=== PATIENT | female | born 1960 ===

== ENCOUNTER 2020-04-28 05:47 | Day surgery (SDC) | payer BC ==
[2020-04-28] MEDS ORDERED: PROPOFOL 200 MG/20 ML VIAL IV ONE (05:48)
[2020-04-28] MEDS ORDERED: LIDOCAINE 1% 10 ML VIAL INJ ONE (05:48)
[2020-04-28] MEDS ORDERED: LACTATED RINGERS 1,000 ML ONE (05:57)
[2020-04-28] MEDS ORDERED: fentaNYL CITRATE INJ 50 MCG/ML 2 ML AMP ONE (08:38)
--- NOTE | 2020-04-28 09:45 | OP ---
DATE OF PROCEDURE: 04/28/20 PREOPERATIVE DIAGNOSIS: 1. Nausea. 2. Screening colonoscopy. POSTOPERATIVE DIAGNOSIS: 1. Possible gastritis. 2. Normal colon. PROCEDURE: 1. EGD with biopsies. 2. Colonoscopy. SURGEON: Yoel Darnell MD PROCEDURE: In lateral position with bite block in place, the endoscope was advanced through the esophagus into the duodenum without difficulty to the third portion of the duodenum. Upon withdrawal, the duodenum was normal with no evidence of ulcer. We did notice one speck of black in the stomach itself. No obvious ulcers were seen, but upon retroflexion, a small tear at the GE junction was noted. The patient said she had vomited from the colon prep and noticed a little bit of redness. This is likely where it came from. It will heal rapidly and is not actively bleeding. A tiny hiatal hernia was seen. The body and fundus appeared normal. There was a small, probable healed ulcer a little radial enhanced vessels with a crater. A biopsy was taken on the edge. Also, a instruments sales representative biopsy of the antrum. Otherwise, normal. Upon withdrawal, the GE junction and esophagus were otherwise normal. She was then placed in lateral position. Colonoscopy was performed. It was difficult initially because of looping, but after a few passes and repositioning the patient twice, we got to the cecum as documented by the appendiceal orifice. Upon withdrawal, no polyps or mucosal inflammation were seen. The patient tolerated the procedure and was taken to Recovery to be discharged. RECOMMENDATION: Continue current medications. Followup for the biopsy results. Note, she did have a history of gastric ulcer, but the one we saw appeared healed. I just do not know if it is the same as prior, so we did do that biopsy. #[id number] cc: Lelia Flood MD [facility]
[2020-04-28 10:42] VITALS: BP 142/75; TEMP 97.6; O2SAT 99
== END 2020-04-28 10:20 | disposition home or self-care (01) ==
LOC: AMB 05:47
PROVIDERS: ATTEND Surgery
DX: Z12.11 Encounter for screening for malignant neoplasm of colon (principal); K31.89 Other diseases of stomach and duodenum; K29.50 Unspecified chronic gastritis without bleeding; K59.00 Constipation, unspecified; F32.9 Major depressive disorder, single episode, unspecified; Z96.643 Presence of artificial hip joint, bilateral; Z79.899 Other long term (current) drug therapy
CPT/HCPCS: 00813; 43239; 45378; J3010; J3490; J7120